=== PATIENT | male | born 1990 | race African-American/Black ===

== ENCOUNTER 2020-12-27 10:28 | Outpatient (REF) | payer OTHER, SELFPAY | END 2020-12-27 10:29 | disposition home or self-care (01) | LOC: HO.LAB 10:28 | PROVIDERS: PCP Physician Assistant; Visit Provider Internal Medicine | DX: Z20.822 Contact with and (suspected) exposure to COVID-19 (principal) | CPT/HCPCS: 36415; C9803; U0003; U0005 ==

== ENCOUNTER 2021-01-11 10:46 | Outpatient (REF) | payer OTHER, SELFPAY | END 2021-01-11 10:47 | disposition home or self-care (01) | LOC: HO.LAB 10:46 | PROVIDERS: PCP Physician Assistant; Visit Provider Internal Medicine | DX: Z20.822 Contact with and (suspected) exposure to COVID-19 (principal) | CPT/HCPCS: 36415; C9803; U0003; U0005 ==

== ENCOUNTER 2021-05-25 19:35 | Emergency (ER) | payer OTHER, SELFPAY ==
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
[2021-05-25 20:08] VITALS: BP 100/59; PULSE 79; RESP 16; TEMP 37.1; O2SAT 96; BMI 21.8
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
== END 2021-05-25 21:40 | disposition home or self-care (01) ==
PROVIDERS: Emergency Provider Internal Medicine; PCP Physician Assistant
DX: S20.212A Contusion of left front wall of thorax, initial encounter (principal); M25.512 Pain in left shoulder; V89.2XXA Person injured in unspecified motor-vehicle accident, traffic, initial encounter; Y93.9 Activity, unspecified; Y92.410 Unspecified street and highway as the place of occurrence of the external cause; Y99.9 Unspecified external cause status
CPT/HCPCS: 71046; 73030; 99283

== ENCOUNTER 2022-09-19 08:48 | Emergency (ER) | payer OTHER, SELFPAY ==
--- NOTE | ~2022-09-19 | XR_ITS ---
EXAMINATION: XR TIBIA AND FIBULA, LEFT CLINICAL INFORMATION: Foreign body COMPARISON: None TECHNIQUE: AP and lateral views of the left tibia and fibula were obtained. FINDINGS: The bones and soft tissues are normal. No fracture. No osseous lesions. No radiopaque foreign body is seen. XR/XR tibia fibula LT 2V IMPRESSION: Normal left tibia and fibula.
[2022-09-19 09:06] VITALS: BP 116/68; PULSE 67; RESP 16; TEMP 37.1; O2SAT 98; BMI 21.8
--- NOTE | 2022-09-19 09:29 | ED.SKABFB ---
HPI - Skin/Abscess/Foreign Bdy General Chief complaint: Skin/Abscess/Foreign Body Stated complaint: cut with glass on leg, possibly infected Time Seen by Provider: 09/19/22 09:16 History of Present Illness HPI narrative: 32 year old male with no sig PMHx presented to the ED c/o foreign body sensation in his left lower leg. 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 He reports area is healing poorly and feels like he has a piece of glass in it. He denies any drainage, tenderness to palpation, fever. Tetanus UTD complaint: foreign body and lesion Onset (ago): day(s) (2) Tetanus up to date: yes Location: LLE Quality: foreign body sensation Relieving factors: none Exacerbating factors: none Associated symptoms: denies other symptoms Related Data Previous Rx's Medication Instructions Recorded cyclobenzaprine 10 mg tablet 10 mg PO TID PRN muscle spasm #10 05/25/21 tabs ibuprofen 600 mg tablet 600 mg PO Q8H PRN pain #15 tabs 05/25/21 lidocaine 5 % topical patch 1 patch topical DAILY #15 ea 05/25/21 (Lidoderm) cephalexin 500 mg capsule 500 mg PO QID 7 days #28 caps 09/19/22 Allergies Allergy/AdvReac Type Severity Reaction Status Date / Time No Known Allergies Allergy Verified 06/20/21 10:07 Review of Systems Review of Systems: Constitutional: , No Fever, No Chills ENT/Mouth: No Ear Pain, No Nasal Congestion, No Sinus Pain, No Hoarseness, No sore throat, No Rhinorrhea, No Swallowing Difficulty Cardiovascular: No Chest Pain, No SOB Respiratory: No Cough, No Sputum, No Wheezing Gastrointestinal: No Nausea, No Vomiting, No Diarrhea, No Constipation, No Abdominal pain Genitourinary: No Dysuria, No Urinary Frequency, No Hematuria, No Flank Pain Musculoskeletal: No joint pain, No Myalgias, No Joint Swelling Skin: + Skin Lesions LLE, No rash Neuro: No Weakness, No Numbness, No Paresthesias Yes all other systems are reviewed and are negative Constitutional: Constitutional: Reports as per [facility] Past Medical History Attestation statement: The following information was validated with the patient. Medical History Asthma Surgical History No history of previous surgery Family History Family History Mother Cancer Father No problems noted. Social History Social History Housing: Apartment Alcohol intake: never Patient Tobacco Use Status: Current everyday Tobacco user Tobacco use type: Cigarette Cigarette Packs Per Day: 0.5 Cigarettes Per Day: 10 Advance Directives: No service: No Current occupational status: unemployed Physical Exam Vital Signs: Vital Signs: Last Vital Signs Temp 98.7 F 09/19/22 09:06 Pulse 67 09/19/22 09:06 Resp 16 09/19/22 09:06 BP 116/68 09/19/22 09:06 Pulse Ox 98 09/19/22 09:06 O2 Del Method 09/19/22 09:06 BMI result Body Mass Index 21.8 Const: General: cooperative, healthy appearing, no acute distress, alert, awake and Physically active; No acute distress Orientation/consciousness: patient oriented x3 Limitations: no limitations HEENT: Head: Yes normal to inspection and Yes atraumatic Ears: hearing grossly normal bilaterally General nose exam: Normal external nose present Face and sinus: Yes normal facial exam Eyes: General: appearance normal, both eyes and all related structures EOM: EOMs intact bilaterally Neck: Neck: Yes normal visual inspection and Yes no meningeal signs Resp: Effort & Inspection: normal respiratory effort, able to speak in complete sentences and no respiratory distress Auscultation: clear to auscultation bilaterally Cardio: Rate: regular rate Rhythm: regular rhythm Heart sounds: S1 normal heart sound present and S2 normal heart sound present Peripheral pulses: dorsalis pedis present GI: Inspection: Yes normal to inspection Skin: Other: small wound noted to L lower leg lateral aspect with mild surrounding erythema. no fluctuance/induration, no streaking, no pus draining General skin exam: erythema Rashes: no rashes Neuro: General: patient oriented x3, tone normal and no meningeal signs Gait exam (Neuro): Normal gait present Extrem: General: Yes normal to inspection Right upper extremity: normal to inspection Left upper extremity: normal to inspection Right lower extremity: normal to inspection Left lower extremity: lower leg (lateral erythematous lesion) Details: erythema Course Course Course Narrative: XR tibia fibula LT 2V IMPRESSION: Normal left tibia and fibula. > Results discussed with patient including worrisome signs and symptoms and strict return precautions, and when to return to the emergency department. They verbalized understanding and feel safe for discharge at this time. MDM - Skin/Abscess/Foreign Bdy MDM Narrative Medical decision making narrative: 32 year old male with no sig PMHx presented to the ED c/o cut and foreign body sensation in his left lower leg s/p glass stuck to pants 2 days ago. On examination VSS, wound noted as above, non tender to palpation, mild surrounding erythema, no drainage. Concern for early cellulitis vs foreign body. Lower suspicion for abscess, osteomyelitis. Plan: XR, PO Abx Differential Diagnosis Differential diagnosis: Likely abscess of skin or subcutaneous tissue and cellulitis Medical Records Attestation: I reviewed the patient's medical records. Lab Data Attestation: I reviewed the patient's lab results. Discharge Plan Discharge Clinical Impression: Wound cellulitis Patient Disposition: Home, Self-Care Instructions: Cellulitis (ED) Additional Instructions: Your x-rays unremarkable. Keflex is an antibiotic please take as prescribed. If area starts to look more infected, more red, there is drainage or you have fever return to the emergency department Follow-up with her doctor Prescriptions: New cephalexin 500 mg capsule 500 mg PO QID 7 Days Qty: 28 0RF No Action ibuprofen 600 mg tablet 600 mg PO Q8H PRN (Reason: pain) Qty: 15 0RF cyclobenzaprine 10 mg tablet 10 mg PO TID PRN (Reason: muscle spasm) Qty: 10 0RF lidocaine [Lidoderm] 5 % adhesive patch,medicated 1 patch topical DAILY Qty: 15 0RF Rx Instructions: leave on most painful area for up to 12 hrs Referrals: Jimmy Bell PA-C [Primary Care Provider] - 5 days
== END 2022-09-19 10:44 | disposition home or self-care (01) ==
PROVIDERS: Emergency Provider Emergency Medicine; PCP Physician Assistant
DX: L03.116 Cellulitis of left lower limb (principal); M79.605 Pain in left leg; Z79.899 Other long term (current) drug therapy; F17.210 Nicotine dependence, cigarettes, uncomplicated; Z71.6 Tobacco abuse counseling
CPT/HCPCS: 73590; 99283

== ENCOUNTER 2022-12-26 15:36 | Emergency (ER) | payer OTHER, SELFPAY ==
[2022-12-26 15:42] VITALS: BP 140/87; PULSE 98; RESP 18; TEMP 36.8; O2SAT 98; BMI 21.9
--- NOTE | 2022-12-26 15:43 | ED.DENTAL ---
HPI - Dental/Oral General Chief complaint: Wound/Laceration <DA Lezama - Last Filed: 12/26/22 15:53> Stated complaint: lip laceration <DA Lezama - Last Filed: 12/26/22 15:53> Time Seen by Provider: 12/26/22 15:45 <DA Lezama - Last Filed: 12/26/22 15:53> Source: patient and family <DA Lezama - Last Filed: 12/26/22 15:53> Mode of arrival: ambulatory <DA Lezama - Last Filed: 12/26/22 15:53> Limitations: no limitations <DA Lezama Last Filed: 12/26/22 15:53> History of Present Illness HPI Narrative: 32 yo male presents to the ER with mouth pain s/p wisdom teeth extraction today at a dentist office in [place] earlier today. Procedure was complicated by a lip laceration sustained accidentally from the drill and it required suture repair. He was discharged with abx and motrin. He states he is in severe pain and is nauseated from the pain. He does not want to go back to that dentist. <DA Lezama - Last Filed: 12/26/22 15:53> MD Complaint: tooth pain and tooth injury (& lip injury) <DA Lezama - Last Filed: 12/26/22 15:53> Onset (ago): hour(s) <DA Lezama Last Filed: 12/26/22 15:53> Duration: constant <DA Lezama - Last Filed: 12/26/22 15:53> Severity: severe <DA Lezama Last Filed: 12/26/22 15:53> Severity scale (1-10): 9 <DA Lezama Last Filed: 12/26/22 15:53> Relieving factors: nothing <DA Lezama Last Filed: 12/26/22 15:53> Context: trauma (mechanism) <DA Lezama Last Filed: 12/26/22 15:53> Treatment prior to arrival: none <DA Lezama - Last Filed: 12/26/22 15:53> Related Data Home medications: Previous Rx's Medication Instructions Recorded cyclobenzaprine 10 mg tablet 10 mg PO TID PRN muscle spasm #10 05/25/21 tabs ibuprofen 600 mg tablet 600 mg PO Q8H PRN pain #15 tabs 05/25/21 lidocaine 5 % topical patch 1 patch topical DAILY #15 ea 05/25/21 (Lidoderm) cephalexin 500 mg capsule 500 mg PO QID 7 days #28 caps 09/19/22 ondansetron 4 mg disintegrating 4 mg PO Q8H PRN nausea and 12/26/22 tablet vomiting 3 days #10 tabs oxycodone 5 mg tablet 5 mg PO Q4H PRN pain #10 tabs 12/26/22 <DA Lezama - Last Filed: 12/26/22 15:53> Allergies/adverse reactions: Allergies Allergy/AdvReac Type Severity Reaction Status Date / Time No Known Allergies Allergy Verified 12/26/22 15:42 <DA Lezama - Last Filed: 12/26/22 15:53> Review of Systems Review of Systems: Yes all other systems are reviewed and are negative <DA Lezama - Last Filed: 12/26/22 15:53> [facility] Past Medical History Medical History: Medical History Asthma <DA Lezama - Last Filed: 12/26/22 15:53> Surgical History: Surgical History No history of previous surgery <DA Lezama - Last Filed: 12/26/22 15:53> Family History Family History: Family History Mother Cancer Father No problems noted. <DA Lezama - Last Filed: 12/26/22 15:53> Social History Social History: Social History Housing: Apartment Alcohol intake: never Patient Tobacco Use Status: Current everyday Tobacco user Tobacco use type: Cigarette Cigarette Packs Per Day: 0.5 Cigarettes Per Day: 10 Advance Directives: No Advance Directives Information Provided: No service: No Current occupational status: unemployed <DA Lezama - Last Filed: 12/26/22 15:53> Physical Exam Vital Signs: Vital Signs: Last Vital Signs Temp 98.2 F 12/26/22 15:42 Pulse 98 12/26/22 15:42 Resp 18 12/26/22 15:42 BP 140/87 H 12/26/22 15:42 Pulse Ox 98 12/26/22 15:42 O2 Del Method 12/26/22 15:42 BMI result Body Mass Index 21.9 <DA Lezama - Last Filed: 12/26/22 15:53> Vital Signs: Last Vital Signs Temp 98.2 F 12/26/22 15:42 Pulse 98 12/26/22 15:42 Resp 18 12/26/22 15:42 BP 140/87 H 12/26/22 15:42 Pulse Ox 98 12/26/22 15:42 O2 Del Method 12/26/22 15:42 BMI result Body Mass Index 21.9 <Kg Cai MD - Last Filed: 12/30/22 11:36> Appearance: Alert. Oriented X3. No acute distress. HEENT: left lower lip with a laceration that is sutured closed, runs into the mouth on buccal mucosa. no oral bleeding. CVS: Normal heart rate and rhythm. Pulses normal. Respiratory: No respiratory distress. Lungs CTAB Skin: Skin warm and dry. Normal skin color. Normal skin turgor. No rashes. Extremities: normal inspection x4 Neuro: Oriented X 3. nonfocal <DA Lezama - Last Filed: 12/26/22 15:53> Course Course Course Narrative: 32 yo male presenting with dental pain s/p wisdom teeth extraction today complicated by a lip lac requiring suture repair. no bleeding. pt is in pain from the procedure. will give short course of oxycodone for pain control along with zofran. stable for d/c with dental follow up <DA Lezama - Last Filed: 12/26/22 15:53> Medical Decision Making Differential Diagnosis Differential Diagnoses: The differential diagnosis associated with the presentation includes <DA Lezama - Last Filed: 12/26/22 15:53> toothache, pain s/p extraction, oral laceration s/p extraction, dental abscess, less likely ludwigs angina <DA Lezama - Last Filed: 12/26/22 15:53> External Record Review External record reviewed: Outpatient record and Prior outpatient labs <DA Lezama - Last Filed: 12/26/22 15:53> Prescription Management I considered prescription management with: Pain Medication and Antibiotic <DA Lezama - Last Filed: 12/26/22 15:53> has a prescription for amoxicillin, will give oxycodone and zofran <DA Lezama - Last Filed: 12/26/22 15:53> Attestation Attending Attestation: I reviewed DIRECTOR OF LABORATORY OPERATIONS/PA/Resident note, assessment and plan. I agree with the documentation, assessment and plan unless otherwise stated. <Kg Cai MD - Last Filed: 12/30/22 11:36> Critical Care Time Critical Care Time Critical Care Time: No <DA Lezama - Last Filed: 12/26/22 15:53> Discharge Plan Discharge Clinical Impression: Pain, dental <DA Lezama - Last Filed: 12/26/22 15:53> Patient Disposition: Home, Self-Care <DA Lezama - Last Filed: 12/26/22 15:53> Instructions: Toothache (ED) <DA Lezama - Last Filed: 12/26/22 15:53> Additional Instructions: Take the prescribed medications as directed. Follow up with your dentist [facility] <DA Lezama - Last Filed: 12/26/22 15:53> Prescriptions: New oxycodone 5 mg tablet 5 mg PO Q4H PRN (Reason: pain) Qty: 10 0RF Rx Instructions: Partial Fill upon patient request. ondansetron 4 mg tablet,disintegrating 4 mg PO Q8H PRN (Reason: nausea and vomiting) 3 Days Qty: 10 0RF No Action ibuprofen 600 mg tablet 600 mg PO Q8H PRN (Reason: pain) Qty: 15 0RF cyclobenzaprine 10 mg tablet 10 mg PO TID PRN (Reason: muscle spasm) Qty: 10 0RF lidocaine [Lidoderm] 5 % adhesive patch,medicated 1 patch topical DAILY Qty: 15 0RF Rx Instructions: leave on most painful area for up to 12 hrs cephalexin 500 mg capsule 500 mg PO QID 7 Days Qty: 28 0RF <DA Lezama - Last Filed: 12/26/22 15:53> Interventions: ED Discharge Assessment Last Done: 12/26/22 15:47 <DA Lezama - Last Filed: 12/26/22 15:53> Discharge Date/Time: 12/26/22 15:50 <DA Lezama - Last Filed: 12/26/22 15:53>
== END 2022-12-26 15:50 | disposition home or self-care (01) ==
LOC: HO.ED 15:49
PROVIDERS: Emergency Provider Emergency Medicine; PCP Physician Assistant
DX: G89.18 Other acute postprocedural pain (principal); Z98.818 Other dental procedure status; F17.210 Nicotine dependence, cigarettes, uncomplicated
CPT/HCPCS: 99282; 99283

== ENCOUNTER 2023-01-06 10:25 | Emergency (ER) | payer OTHER, SELFPAY ==
--- NOTE | 2023-01-06 11:08 | ED_ITS ---
HPI - General Adult General Stated complaint: lip issue Time Seen by Provider: 01/06/23 10:54 Source: patient, RN notes reviewed and old records reviewed Mode of arrival: ambulatory Limitations: no limitations History of Present Illness HPI narrative: 32-year-old male presents for evaluation of left lower lip laceration. Patient reports that about 2 weeks ago he was having him within teeth extracted and a dentist office. He reports that the dentist accidentally closed the laceration the left lower lip within from during the procedure. The wound was repaired with sutures The patient presented 10 days ago to this facility due to pain and nausea from the wound. He was discharged with oxycodone and Zofran Patient reports that he went to the dentist office again today and the wound is open to the left lower lip. He states he has been sutured a total of 4 separate times at the dentist office. Patient reports that the dentist told him he needs to see an oral surgeon and they could not do anything for the patient The patient reports that he spoke to an oral surgeon's office and was told he could not be seen until October of 2023 Patient denies any pain, swelling to the area or discharge from the wound Related Data Previous Rx's Medication Instructions Recorded cyclobenzaprine 10 mg tablet 10 mg PO TID PRN muscle spasm #10 05/25/21 tabs ibuprofen 600 mg tablet 600 mg PO Q8H PRN pain #15 tabs 05/25/21 lidocaine 5 % topical patch 1 patch topical DAILY #15 ea 05/25/21 (Lidoderm) cephalexin 500 mg capsule 500 mg PO QID 7 days #28 caps 09/19/22 ondansetron 4 mg disintegrating 4 mg PO Q8H PRN nausea and 12/26/22 tablet vomiting 3 days #10 tabs oxycodone 5 mg tablet 5 mg PO Q4H PRN pain #10 tabs 12/26/22 Allergies Allergy/AdvReac Type Severity Reaction Status Date / Time No Known Allergies Allergy Verified 12/26/22 15:42 Review of Systems Constitutional: Constitutional: Reports as per HPI and Denies chills ENT: Comments: Reports healing laceration to the left lower lip Cardiovascular: Cardiovascular: Denies chest pain and Denies dyspnea Respiratory: Respiratory: Denies cough and Denies dyspnea PMFSH Past Medical History Medical History Asthma Surgical History No history of previous surgery Family History Family History Mother Cancer Father No problems noted. Social History Social History Housing: Apartment Alcohol intake: never Patient Tobacco Use Status: Current everyday Tobacco user Tobacco use type: Cigarette Cigarette Packs Per Day: 0.5 Cigarettes Per Day: 10 service: No Current occupational status: unemployed Physical Exam ED Const General: healthy appearing, comfortable, no acute distress, alert and awake Nutritional Appearance: well nourished Orientation/consciousness: patient oriented x3 HENMT Other: Patient is a healing, 2 cm, vertical, linear lacerations to the buccal mucosa left lower lip. There are still sutures in place. The wound is slightly dehisced. There is no surrounding erythema, edema or discharge from the wound. Dentition intact. The knee is not through and through Eyes Eyelids: Yes eyelids normal Conjunctivae: conjunctivae normal Sclerae: sclerae normal Corneas: corneas normal Pupils: Equal, round and reactive pupils present EOM: EOMs intact bilaterally Resp Effort & Inspection: normal respiratory effort, able to speak in complete sentences, no audible wheezes and not labored Neuro General: patient oriented x3 Cranial nerves: Yes Equal, round and reactive pupils present Extrem General: Yes full ROM Medical Decision Making Medical Decision Making MDM Narrative: The patient then had a laceration due to complications from dental extraction. This was repaired numerous times by the dentist office. There appears to be some mild wound dehiscence that the patient is frustrated with. Overall there does not appear to be any acute emergency. There is no evidence of infection. The wound is closed but slightly dehisced, less than 3 mm. Unfortunately, the patient will have to follow up with oral surgery as an outpatient for any further workup Differential Diagnosis Differential Diagnoses: The differential diagnosis associated with the pr esentation includes (Laceration, wound dehiscence, lip laceration, contusion,) Lip laceration Discharge Plan Discharge Clinical Impression: Laceration of lower lip Patient Disposition: Home, Self-Care Additional Instructions: Do not see any indication to continue to remove and then reapply sutures. Recommend you continue to try to follow up with oral surgeon for outpatient follow-up. Return if there is any swelling the area of redness, increased pain or discharge from the wound and these could be signs of infection Prescriptions: No Action ibuprofen 600 mg tablet 600 mg PO Q8H PRN (Reason: pain) Qty: 15 0RF cyclobenzaprine 10 mg tablet 10 mg PO TID PRN (Reason: muscle spasm) Qty: 10 0RF lidocaine [Lidoderm] 5 % adhesive patch,medicated 1 patch topical DAILY Qty: 15 0RF Rx Instructions: leave on most painful area for up to 12 hrs oxycodone 5 mg tablet 5 mg PO Q4H PRN (Reason: pain) Qty: 10 0RF Rx Instructions: Partial Fill upon patient request. ondansetron 4 mg tablet,disintegrating 4 mg PO Q8H PRN (Reason: nausea and vomiting) 3 Days Qty: 10 0RF cephalexin 500 mg capsule 500 mg PO QID 7 Days Qty: 28 0RF
[2023-01-06 11:13] VITALS: BP 115/76; PULSE 72; RESP 18; TEMP 37.2; O2SAT 97
[2023-01-06 11:15] VITALS: BP 115/76; PULSE 72; RESP 17; TEMP 37.2; O2SAT 98; BMI 21.8
== END 2023-01-06 12:03 | disposition home or self-care (01) ==
PROVIDERS: Emergency Provider Emergency Medicine; PCP Physician Assistant
DX: S01.511A Laceration without foreign body of lip, initial encounter (principal); Y65.8 Other specified misadventures during surgical and medical care; Y82.8 Other medical devices associated with adverse incidents; Y92.538 Other ambulatory health services establishments as the place of occurrence of the external cause; Y93.E8 Activity, other personal hygiene; Y99.9 Unspecified external cause status
CPT/HCPCS: 99282; 99283

== ENCOUNTER 2023-07-06 00:57 | Emergency (ER) | payer OTHER, SELFPAY ==
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
[2023-07-06 01:09] VITALS: BP 143/79; PULSE 99; RESP 18; TEMP 37.3; O2SAT 97; BMI 21.8
[2023-07-06 02:42] VITALS: BP 135/90; PULSE 82; RESP 17; O2SAT 98
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
[2023-07-06 02:48] LABS: Basophils Absolute Auto 0.1 X10*3/uL (0.0-0.2); Basophils Percent Auto 0.5 % (0-2); Eosinophils Percent Auto 0.2 % (0-4); Hemoglobin 14.1 g/dl (14.0-18.0); Imm Gran Abs Auto 0.07 X10*3/uL (0.00-0.03); Imm Gran Pct Auto 0.5 % (0.0-0.4); Lymphocytes Absolute Auto 1.7 X10*3/uL (1.2-4.9); Lymphocytes Percent Auto 11.6 % (20-40); MANUAL DIFF FLAG NO; Mean Corpuscular HGB Conc 35.3 g/dl (31.0-36.0); Mean Corpuscular Hemoglobin 30.5 pg (27.0-33.0); Mean Corpuscular Volume 86.6 fL (80.0-98.0); Monocytes Absolute Auto 1.1 X10*3/uL (0.1-1.2); Monocytes Percent Auto 7.8 % (2-11); Neutrophils Absolute Auto 11.5 x10*3/uL (2.0-8.3); Neutrophils Percent Auto 79.4 % (45-73); Platelet Count 278 X10*3/uL (160-400); Red Blood Count 4.62 X10*6/uL (4.60-5.80); Red Cell Distribution Width 12.3 % (11.0-16.0); White Blood Count 14.4 X10*3/uL (4.8-10.8)
[2023-07-06 02:56] LABS: Prothrombin Time 11.6 SEC (11.1-13.3)
[2023-07-06 02:58] LABS: Partial Thromboplastin Time 30.7 SEC (26.0-36.4)
[2023-07-06 03:01] LABS: Alanine Aminotransferase 25 U/L (0-40); Albumin Level 4.4 g/dL (3.5-5.0); Alkaline Phosphatase 60 U/L (39-117); Anion Gap 15 (12-20); Aspartate Amino Transferase 33 U/L (5-37); Bilirubin Total 0.5 mg/dL (0.0-1.0); Blood Urea Nitrogen 14 mg/dL (9-16); Calcium 9.3 mg/dL (8.4-10.2); Carbon Dioxide 23 mmol/L (22-29); Chloride 108 mmol/L (96-108); Creatinine Clr Calc Pharmacy 87.1; Estimated Glomerular Filt Rate > 60; Glucose Random 103 mg/dL (60-115); Magnesium 2.1 mg/dL (1.6-2.6); Potassium 3.5 mmol/L (3.3-5.1); Sodium 142 mmol/L (135-145); Total Protein 7.2 g/dL (6.5-8.0)
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
[2023-07-06] MEDS: Morphine Sulfate 4 MG/ML CARTRIDGE IVPUSH (03:21)
[2023-07-06] MEDS: Amoxicillin/Potassium Clav 500 MG TABLET PO (03:24)
[2023-07-06] MEDS: ondansetron HCL 4 MG/2 ML VIAL IVPUSH (03:34)
[2023-07-06] MEDS: Oxymetazoline HCl 0.05 % Nasal 15 ML SPRAY 2 SPRAY NOSTRIL-B (03:34)
[2023-07-06 04:14] VITALS: BP 112/68; PULSE 81; RESP 18; TEMP 36.5; O2SAT 95
[2023-07-06] MEDS: Morphine Sulfate 2 MG/ML CARTRIDGE IVPUSH (04:47)
[2023-07-06] MEDS: Tranexamic Acid 1,000 MG/10 ML VIAL 1000 MG INTRANASAL (04:48)
[2023-07-06 05:37] LABS: Amphetamine Screen Urine Not Detected (Not Detect); Barbiturates, Urine Not Detected (Not Detect); Benzodiazepines Screen Urine Not Detected (Not Detect); Cannabinoid Screen Urine POSITIVE (Not Detect); Cocaine Screen Urine Not Detected (Not Detect); Fentanyl, urine Not Detected (Not Detect); Opiate Screen Urine POSITIVE (Not Detect); Phencyclidine Screen Urine Not Detected (Not Detect)
[2023-07-06 06:21] VITALS: PULSE 69; RESP 18; O2SAT 97
[2023-07-06 07:14] VITALS: PULSE 62; RESP 18; O2SAT 97
--- NOTE | 2023-07-06 07:15 | PC.NURSE ---
Patient resting in bed, respirations unlabored, no s/s of pain or distress. Right side nasal packing intact with no further bleeding. at bedside
--- NOTE | 2023-07-06 07:59 | PC.NURSE ---
Discharge plan reviewed with patient and who verbalized understanding
== END 2023-07-06 07:59 | disposition home or self-care (01) ==
PROVIDERS: Physician Assistant Medical; Emergency Provider Emergency Medicine
DX: S02.2XXA Fracture of nasal bones, initial encounter for closed fracture (principal); S00.83XA Contusion of other part of head, initial encounter; R04.0 Epistaxis; R51.9 Headache, unspecified; M79.641 Pain in right hand; Y04.8XXA Assault by other bodily force, initial encounter; Y93.9 Activity, unspecified; Y92.9 Unspecified place or not applicable; Y99.9 Unspecified external cause status; F17.210 Nicotine dependence, cigarettes, uncomplicated; Z71.6 Tobacco abuse counseling; Z79.899 Other long term (current) drug therapy
CPT/HCPCS: 36415; 70486; 73130; 80053; 80307; 83735; 85025; 85610; 85730; 86850; 86900; 86901; 96374; 96375; 96376; 99284; J2270; J2405

== ENCOUNTER 2023-07-09 15:09 | Outpatient (AMB) | payer OTHER, SELFPAY ==
[2023-07-09 15:14] VITALS: BP 118/82; PULSE 78; O2SAT 96; BMI 20.9
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
== END 2023-07-09 16:00 | disposition home or self-care (01) ==
PROVIDERS: PCP Physician Assistant; Visit Provider Physician Assistant
DX: S02.2XXG Fracture of nasal bones, subsequent encounter for fracture with delayed healing (principal); B36.0 Pityriasis versicolor
CPT/HCPCS: 99214